=== PATIENT | male | born 1965 | race African-American/Black ===

== ENCOUNTER 2017-01-14 22:07 | Emergency (ER) | payer BC ==
[2017-01-14] MEDS ORDERED: HYDROmorphone 1 MG/ML Syringe IVPUSH ONE (23:28)
[2017-01-14] MEDS ORDERED: Ondansetron 4 MG/2 ML SDV IVPUSH ONE (23:28)
[2017-01-14] MEDS ORDERED: Sodium Chloride 0.9% 1,000 ML IV SCH (23:30)
--- NOTE | 2017-01-15 01:41 | EDM.PDOC ---
ED HPI GENERAL MEDICAL PROBLEM - General Chief Complaint: Abdominal Pain Stated Complaint: FEVER AND ABDOMINAL PAIN Time Seen by Provider: 01/14/17 22:36 Source of Information: Reports: Patient, RN Notes Reviewed History Limitations: Reports: No Limitations - History of Present Illness INITIAL COMMENTS - FREE TEXT/NARRATIVE: The patient states that he developed generalized abdominal pain around 17:00 today. He is unable to describe the character. The pain is constant, and he has not identified any modifiers. The patient also states that he has been coughing for the past few days, productive of whitish sputum. He has had chills tonight, but no documented fever , and he is afebrile here in the ED. The patient also reports nausea and 2 episodes of emesis tonight. No recent constipation, diarrhea, or urinary symptoms. The patient states that he was seen in the clinic today. He states that no tests were done, but he was prescribed a cough medicine and a stomach medicine, the names of which she does not know. No prior similar symptoms. The patient did not receive an influenza vaccine this season. The patient's last oral solid intake was around 15:00 today. His last oral fluid intake was around 17:00 today. The patient's PCP is in [facility]. Treatments LEASING PROPERTY MANAGER: Reports: Other (see below) Other Treatments LEASING PROPERTY MANAGER: none Abdomen Pain Score (Numeric/FACES): 10 - Related Data Allergies Allergy/AdvReac Type Severity Reaction Status Date / Time No Known Allergies Allergy Verified 01/14/17 22:18 Home Meds: Home Meds Lisinopril 20 mg PO DAILY 01/14/17 [History] Hydrocodone/Acetaminophen [Cisne 5-325 Tablet] 1 - 2 tab PO Q6H PRN #14 tablet 01/15/17 [Rx] Ondansetron [Zofran ODT] 1 tab PO Q8H PRN #10 tab.dis 01/15/17 [Rx] Tamsulosin HCl [Flomax] 1 tab PO QAM PRN #5 cap.er.24h 01/15/17 [Rx] Past Medical History Cardiovascular History: Reports: Hypertension Social & Family History - Tobacco Use Smoking Status *Q: Never Smoker - Caffeine Use Caffeine Use: Reports: Coffee, Tea - Alcohol Use Alcohol Use History: Yes Alcohol Use Frequency: Socially - Recreational Drug Use Recreational Drug Use: No - Living Situation & Occupation Living situation: Reports: , Alone Occupation: Employed ([employer]) ED ROS GENERAL - Review of Systems Review Of Systems: See Below Constitutional: Reports: No Symptoms HEENT: Reports: No Symptoms Respiratory: Reports: No Symptoms Cardiovascular: Reports: No Symptoms Endocrine: Reports: No Symptoms GI/Abdominal: Reports: No Symptoms : Reports: No Symptoms Musculoskeletal: Reports: No Symptoms Skin: Reports: No Symptoms Neurological: Reports: No Symptoms Psychiatric: Reports: No Symptoms Hematologic/Lymphatic: Reports: No Symptoms Immunologic: Reports: No Symptoms ED EXAM, GENERAL - Physical Exam Exam: See Below Exam Limited By: No Limitations General Appearance: Alert, WD/WN, Mild Distress (Patient is constantly moving about the bed) Eye Exam: Bilateral Eye: Normal Inspection Ears: Normal External Exam, Hearing Grossly Normal Ear Exam: Bilateral Ear: Tenderness Nose: Normal Inspection, No Blood Throat/Mouth: Normal Inspection, Normal Lips, Normal Voice, No Airway Compromise Head: Atraumatic, Normocephalic Neck: Normal Inspection, Full Range of Motion Respiratory/Chest: No Respiratory Distress, Lungs Clear, Normal Breath Sounds, No Accessory Muscle Use Cardiovascular: Normal Peripheral Pulses, Regular Rate, Rhythm, No Gallop, No JVD, No Murmur, No Rub Peripheral Pulses: 4+: Radial (L), Radial (R) GI/Abdominal: Normal Bowel Sounds, Soft, No Organomegaly, No Distention, No Abnormal Bruit, No Mass, Tender (Generalized, non-focal) (Male) Exam: Deferred Rectal (Males) Exam: Deferred Back Exam: Normal Inspection, Full Range of Motion. No: CVA Tenderness (L), CVA Tenderness (R) Extremities: Normal Inspection, Normal Range of Motion, No Pedal Edema, Normal Capillary Refill Neurological: Alert, Oriented, Normal Cognition, No Motor/Sensory Deficits Psychiatric: Normal Affect Skin Exam: Warm, Dry, Intact, Normal Color, No Rash Course - Vital Signs Last Recorded V/S: Last Vital Signs Temp 35.4 C 01/14/17 22:14 Pulse 84 01/14/17 22:14 Resp 24 H 01/14/17 22:14 BP 169/103 H 01/14/17 22:14 Pulse Ox 98 01/14/17 22:14 - Orders/Labs/Meds Orders: Active Orders 24 hr Category Date Time Status Strain Urine [RC] ASDIRECTED Care 01/15/17 02:39 Active Abdomen Pelvis w Cont [CT] Stat Exams 01/14/17 23:28 Taken Chest 2V [CR] Stat Exams 01/14/17 23:30 Taken CULTURE BLOOD [BC] Stat Lab 01/14/17 23:50 Received CULTURE BLOOD [BC] Stat Lab 01/14/17 23:58 Received Sodium Chloride 0.9% [Normal Saline] 1,000 ml Med 01/14/17 23:30 Active IV ASDIRECTED Blood Culture x2 Reflex Set [OM.PC] Stat Oth 01/14/17 23:30 Ordered Medication Orders Sodium Chloride (Normal Saline) 1,000 mls @ 150 mls/hr IV ASDIRECTED VALENTINA Last Admin: 01/14/17 23:51 Dose: 150 mls/hr Labs: Laboratory Tests 01/14/17 01/14/17 01/15/17 Range/Units 23:50 23:50 03:05 WBC 8.38 (4.23-9.07) K/mm3 RBC 4.67 (4.63-6.08) M/mm3 Hgb 13.4 L (13.7-17.5) gm/L Hct 40.4 (40.1-51.0) % MCV 86.5 (79.0-92.2) fl MCH 28.7 (25.7-32.2) pg MCHC 33.2 (32.2-35.5) g/dl RDW Std Deviation 41.1 (35.1-43.9) fL Plt Count 261 (163-337) K/mm3 MPV 9.0 L (9.4-12.3) fl Neutrophils % (Manual) 77 H (40-60) % Band Neutrophils % 0 (0-10) % Lymphocytes % (Manual) 10 L (20-40) % Atypical Lymphs % 2 % Monocytes % (Manual) 11 H (2-10) % Eosinophils % (Manual) 0 L (0.8-7.0) % Basophils % (Manual) 0 L (0.2-1.2) Platelet Estimate Adequate Plt Morphology Comment See note RBC Morph Comment Normal Sodium 139 (136-145) mEq/L Potassium 3.6 (3.5-5.1) mEq/L Chloride 104 (98-107) mEq/L Carbon Dioxide 25 (21-32) mEq/L Anion Gap 13.6 (5-15) BUN 15 (7-18) mg/dL Creatinine 1.4 H (0.7-1.3) mg/dL Est Cr Clr Drug Dosing 65.74 mL/min Estimated GFR (MDRD) 53 (>60) mL/min BUN/Creatinine Ratio 10.7 L (14-18) Glucose 153 H (74-106) mg/dL Calcium 9.4 (8.5-10.1) mg/dL Total Bilirubin 0.5 (0.2-1.0) mg/dL AST 26 (15-37) U/L ALT 26 (16-63) U/L Alkaline Phosphatase 68 (46-116) U/L Total Protein 7.8 (6.4-8.2) g/dl Albumin 3.9 (3.4-5.0) g/dl Globulin 3.9 gm/dL Albumin/Globulin Ratio 1.0 (1-2) Lipase 251 (73-393) U/L Urine Color Yellow (Yellow) Urine Appearance Clear (Clear) Urine pH 8.0 (5.0-8.0) Ur Specific [place] 1.020 (1.005-1.030) Urine Protein Negative (Negative) Urine Glucose (UA) Negative (Negative) Urine Ketones Trace H (Negative) Urine Occult Blood Negative (Negative) Urine Nitrite Negative (Negative) Urine Bilirubin Negative (Negative) Urine Urobilinogen 0.2 (0.2-1.0) Ur Leukocyte Esterase Negative (Negative) Urine RBC 0-5 (0-5) /hpf Urine WBC 0-5 (0-5) /hpf Ur Epithelial Cells Not seen (0-5) /hpf Amorphous Sediment Few H (NOT SEEN) /hpf Urine Bacteria Rare (FEW) /hpf Urine Mucus Few (FEW) /hpf Meds: Medications Generic Name Dose Route Start Last Admin Trade Name Freq PRN Reason Stop Dose Admin Sodium Chloride 1,000 mls @ 150 mls/hr 01/14/17 23:30 01/14/17 23:51 Normal Saline IV 150 mls/hr ASDIRECTED VALENTINA Administration Discontinued Medications Generic Name Dose Route Start Last Admin Trade Name Freq PRN Reason Stop Dose Admin Hydromorphone HCl 1 mg 01/14/17 23:28 01/14/17 23:55 Dilaudid IVPUSH 01/14/17 23:29 1 mg ONETIME ONE Administration Ondansetron HCl 4 mg 01/14/17 23:28 01/14/17 23:53 Zofran IVPUSH 01/14/17 23:29 4 mg ONETIME ONE Administration Tamsulosin HCl 0.4 mg 01/15/17 02:39 01/15/17 02:53 Flomax PO 01/15/17 02:40 0.4 mg ONETIME ONE Administration - Re-Assessments/Exams Free Text/Narrative Re-Assessment/Exam: 01/15/17 00:56 Two-view chest radiograph appears to be grossly normal. Cardiac silhouette is within normal limits. No pulmonary vascular congestion. No pleural effusions. No focal infiltrate. No pneumothorax. Formal read per the Radiologist pending. 01/15/17 02:37 CT of the abdomen and pelvis with IV contrast is read by virtual radiology as: 3 mm obstructing stone in the left ureterovesicular junction causing hydronephrosis as well as hydroureter of the left kidney Normal appendix right lower quadrant 01/15/17 04:04 Test results discussed with the patient and his brother, who is at the bedside. The patient will be discharged home with prescriptions for Cisne, Zofran, and Flomax. He will be given a urine strainer before he is discharged. He will be referred to Dr. Salazar, however, given the size and location of the stone, it is highly likely that the patient will pass this on his own and did not require Dr. Salazar's services. Departure - Departure Time of Disposition: 04:05 Disposition: Home, Self-Care 01 Condition: Good Clinical Impression: Ureterolithiasis - Discharge Information Prescriptions: Hydrocodone/Acetaminophen [Cisne 5-325 Tablet] 1 - 2 tab PO Q6H PRN #14 tablet PRN Reason: Pain (Severe 7-10) Referrals: PCP,None [Primary Care Provider] - Vincent Salazar MD [Physician] - Forms: ED Department Discharge Additional Instructions: You were seen in the emergency room for generalized abdominal pain, a cough, chills, nausea, and vomiting. Workup in the ER included blood work, 2 sets of blood cultures, an urinalysis, an influenza swab, a chest x-ray, and a CT scan of your abdomen and pelvis. Your workup found that you have a 3 mm stone in your left ureter, just at the bladder. It is HIGHLY LIKELY that you will past this stone on your own within a few days. It is important that you stay adequately hydrated. Strain all of your urine. If you capture the stone, take it to your doctor for analysis. Take [id number] ibuprofen, 2-3 tablets (400-600 mg) every 8 hours, with food, as needed for pain. Take one to 2 tablets Cisne up to every 6 hours, as needed for pain not relieved by ibuprofen. If you take Cisne, do not drive or operate heavy machinery for 10 hours afterwards. Cisne will likely cause constipation, so consider taking a stool softener Dissolve one tablet of the anti-nausea medicine Zofran on your tongue up to every 8 hours, as needed for nausea/vomiting. Take one tablet of the anti-spasm medicine Flomax every morning, starting tomorrow morning, 01/16/2017, as needed for pain. If your pain does not improve within one week, please follow-up with the Urologist Dr. Salazar. If any other problems, please do not hesitate to return to the ER. - My Orders Last 24 Hours: My Active Orders 01/14/17 23:28 Abdomen Pelvis w Cont [CT] Stat 01/14/17 23:30 Chest 2V [CR] Stat Sodium Chloride 0.9% [Normal Saline] 1,000 ml IV ASDIRECTED Blood Culture x2 Reflex Set [OM.PC] Stat 01/14/17 23:50 CULTURE BLOOD [BC] Stat 01/14/17 23:58 CULTURE BLOOD [BC] Stat 01/15/17 02:39 Strain Urine [RC] ASDIRECTED - Assessment/Plan Last 24 Hours: My Active Orders 01/14/17 23:28 Abdomen Pelvis w Cont [CT] Stat 01/14/17 23:30 Chest 2V [CR] Stat Sodium Chloride 0.9% [Normal Saline] 1,000 ml IV ASDIRECTED Blood Culture x2 Reflex Set [OM.PC] Stat 01/14/17 23:50 CULTURE BLOOD [BC] Stat 01/14/17 23:58 CULTURE BLOOD [BC] Stat 01/15/17 02:39 Strain Urine [RC] ASDIRECTED
[2017-01-15] MEDS ORDERED: Tamsulosin 0.4 MG Cap.ER PO ONE (02:39)
--- NOTE | 2017-01-15 07:40 | CR ---
Chest: Two views of the chest were obtained. Comparison: No prior chest x-ray. Heart size is mildly enlarged. Upper mediastinum is within normal limits. Lungs are clear. Bony structures are unremarkable. Impression: 1. Mild cardiomegaly. Please correlate if etiology is clinically known. 2. Nothing acute is otherwise seen on two-view chest x-ray. Diagnostic code #3
--- NOTE | 2017-01-15 08:46 | CT ---
CT abdomen and pelvis Technique: Multiple axial sections were obtained from above the dome of the diaphragm inferiorly through the pubic symphysis. Intravenous and oral contrast was utilized. Delayed images were obtained through the bladder. Findings: Asymmetric enhancement is seen comparing the kidneys with diminished enhancement seen on the left side. Inflammatory change identified around the left kidney as well as left ureteral dilatation. These findings are caused by a 3 mm obstructing stone within the distal left ureter at the UVJ. No other abnormal calcifications are seen along the course of the ureters. Delayed images show contrast within the distal right ureter with no contrast seen excreted into the distal left ureter. Small portion of the visualized lung bases are clear. Liver shows no focal parenchymal abnormality. Spleen appears within normal limits. Adrenal glands show no nodule. Gallbladder contains no calcified gallstones. Pancreas is within normal limits. Aorta shows no aneurysmal dilatation. No retroperitoneal adenopathy or mesenteric abnormalities are seen. Appendix is seen which is normal. No pelvic mass or adenopathy is seen. Bone window settings were reviewed which appear within normal limits for the patient's age. Impression: 1. Findings within the left kidney and ureter caused by a 3 mm obstructing stone located within the distal left ureter at the UVJ. 2. Other normal findings as described above. Diagnostic code #3 Agree with preliminary report issued by [facility] ([facility] preliminary report dictated on 01/15/17, 3:33 AM Central Time)
== END 2017-01-15 04:20 | disposition home or self-care (01) ==
LOC: JD.ED 22:07
DX: N13.2 Hydronephrosis with renal and ureteral calculous obstruction (principal); I10 Essential (primary) hypertension; Z79.899 Other long term (current) drug therapy
CPT/HCPCS: 36415; 71020; 74177; 80053; 81001; 83690; 85025; 87040; 87804; 96361; 96374; 99285; A9270; J1170; J2405; J7040; 99284

== ENCOUNTER 2017-01-16 02:29 | Emergency (ER) | payer BC ==
[2017-01-16] MEDS ORDERED: Ondansetron 4 MG/2 ML SDV IVPUSH ONE (03:44)
[2017-01-16] MEDS ORDERED: HYDROmorphone 1 MG/ML Syringe IVPUSH ONE (03:44)
--- NOTE | 2017-01-16 03:51 | EDM.PDOC ---
ED HPI GENERAL MEDICAL PROBLEM - General Chief Complaint: Abdominal Pain Stated Complaint: ABDOMINAL PAIN Time Seen by Provider: 01/16/17 02:58 Source of Information: Reports: Patient, Family (Brother), RN Notes Reviewed History Limitations: Reports: No Limitations - History of Present Illness INITIAL COMMENTS - FREE TEXT/NARRATIVE: The patient was seen by me in this ED last night, 01/14/2017 for generalized abdominal pain. Workup included a CBC, CMP, lipase, urinalysis, and a CT scan of the abdomen and pelvis with oral and IV contrast, which found a 3 mm stone at the left UVJ. The patient was discharged home with prescriptions for Dobson, Zofran, and Flomax. He was to strain all of his urine, and a referral to Dr. Salazar was given, although the patient was made aware that given the size and location of his stone, that he would most likely pass it on his own in a few days. The patient now returns due to waxing and waning pain in his left lower quadrant. He states that the Dobson has been inadequate to control his pain. He has had 2 episodes of emesis. No new fever. Left Abdomen Pain Score (Numeric/FACES): 10 - Related Data Allergies Allergy/AdvReac Type Severity Reaction Status Date / Time No Known Allergies Allergy Verified 01/16/17 02:41 Home Meds: Home Meds Lisinopril 20 mg PO DAILY 01/14/17 [History] Hydrocodone/Acetaminophen [Dobson 5-325] 1 - 2 tab PO Q6H PRN #14 tablet [Rx] Ondansetron [Zofran ODT] 1 tab PO Q8H PRN #10 tab.dis 01/15/17 [Rx] Tamsulosin HCl [Flomax] 1 tab PO QAM PRN #5 cap.er.24h 01/15/17 [Rx] oxyCODONE HCl/Acetaminophen [Percocet 7.5-325 mg Tablet] 1 - 2 tab PO Q6H PRN # 14 tablet 01/16/17 [Rx] Past Medical History Cardiovascular History: Reports: Hypertension Genitourinary History: Reports: Renal Calculus Social & Family History - Tobacco Use Smoking Status *Q: Never Smoker - Caffeine Use Caffeine Use: Reports: None - Alcohol Use Alcohol Use History: Yes Alcohol Use Frequency: Socially - Recreational Drug Use Recreational Drug Use: No - Living Situation & Occupation Living situation: Reports: , Alone 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 Denies: Fever HEENT: Reports: No Symptoms Respiratory: Reports: Cough, Sputum (whitish) Cardiovascular: Reports: No Symptoms Endocrine: Reports: No Symptoms GI/Abdominal: Reports: Abdominal Pain (as per the HPI), Nausea, Vomiting : Reports: No Symptoms Musculoskeletal: Reports: No Symptoms Skin: Reports: No Symptoms Neurological: Reports: No Symptoms Psychiatric: Reports: No Symptoms Hematologic/Lymphatic: Reports: No Symptoms Immunologic: Reports: No Symptoms ED EXAM, RENAL/ - Physical Exam Exam: See Below Exam Limited By: No Limitations General Appearance: Alert, WD/WN, No Apparent Distress Eye Exam: Bilateral Eye: Normal Inspection Ears: Normal External Exam, Hearing Grossly Normal Nose: Normal Inspection, No Blood Throat/Mouth: Normal Inspection, Normal Lips, Normal Voice, No Airway Compromise Head: Atraumatic, Normocephalic Neck: Normal Inspection, Full Range of Motion Respiratory/Chest: No Respiratory Distress, Lungs Clear, Normal Breath Sounds, No Accessory Muscle Use Cardiovascular: Normal Peripheral Pulses, Regular Rate, Rhythm, No Gallop, No JVD, No Murmur, No Rub GI/Abdominal: Normal Bowel Sounds, Soft, No Organomegaly, No Distention, No Abnormal Bruit, No Mass, Tender (Minimal, left lower quadrant. Nontender elsewhere.) (Male) Exam: Normal Inspection, Deferred Rectal (Males) Exam: Deferred Back Exam: Normal Inspection, Full Range of Motion. No: CVA Tenderness (L), CVA Tenderness (R) Extremities: Normal Inspection, Normal Range of Motion, No Pedal Edema, Normal Capillary Refill Neurological: Alert, Oriented, Normal Cognition, No Motor/Sensory Deficits Psychiatric: Normal Affect Skin Exam: Warm, Dry, Intact, Normal Color, No Rash Course - Vital Signs Last Recorded V/S: Last Vital Signs Temp 36.0 C 01/16/17 02:34 Pulse 94 01/16/17 02:34 Resp 18 01/16/17 02:34 BP 185/114 H 01/16/17 02:34 Pulse Ox 99 01/16/17 02:34 - Orders/Labs/Meds Meds: Medications Discontinued Medications Generic Name Dose Route Start Last Admin Trade Name Freq PRN Reason Stop Dose Admin Hydromorphone HCl 1 mg 01/16/17 03:44 01/16/17 03:59 Dilaudid IVPUSH 01/16/17 03:45 1 mg ONETIME ONE Administration Ondansetron HCl 4 mg 01/16/17 03:44 01/16/17 03:59 Zofran IVPUSH 01/16/17 03:45 4 mg ONETIME ONE Administration - Re-Assessments/Exams Free Text/Narrative Re-Assessment/Exam: 01/16/17 03:45 The patient will be given 1 mg IV Dilaudid and 4 mg IV Zofran, then discharged home with a prescription for Percocet. The patient was notified that he should not take both Dobson and Percocet at the same time. The patient was referred to Dr. Salazar last night. If the patient still has pain by 01/18/[address] Salazar's office to arrange for an appointment. Departure - Departure Time of Disposition: 03:46 Disposition: Home, Self-Care 01 Condition: Fair Clinical Impression: Ureterolithiasis - Discharge Information Prescriptions: oxyCODONE HCl/Acetaminophen [Percocet 7.5-325 mg Tablet] 1 - 2 tab PO Q6H PRN # 14 tablet PRN Reason: Pain (Severe 7-10) Referrals: PCP,None [Primary Care Provider] - Vincent Salazar MD [Physician] - Forms: ED Department Discharge Additional Instructions: You were seen in the emergency room for uncontrolled pain related to your left kidney stone. You were given Dilaudid and Zofran in the ER. We recommend that you continue to stay adequately hydrated. Continue to strain all of your urine. If you capture the stone, take it to your doctor for analysis. Continue to take [id number] ibuprofen, 2-3 tablets (400-600 mg) every 8 hours, with food, as needed for pain. You may take 1-2 tablets of EITHER the narcotic pain reliever Dobson OR Percocet up to every 6 hours, as needed for pain not relieved by ibuprofen. DO NOT take both Dobson and Percocet - just one or the other. If you take either Dobson or Percocet, do not drive or operate heavy machinery for 10 hours afterwards. Both Dobson and Percocet will likely cause constipation, so consider taking a stool softener. Dissolve one tablet of the anti-nausea medicine Zofran on your tongue up to every 8 hours, as needed for nausea/vomiting. Continue to take one tablet of the anti-spasm medicine Flomax every morning. If you still have significant pain by 01/18/2017, please contact the office of the Urologist Dr. Salazar to make an appointment. If any other problems, please do not hesitate to return to the ER.
== END 2017-01-16 04:15 | disposition home or self-care (01) ==
LOC: JD.ED 02:29
DX: N20.1 Calculus of ureter (principal); I10 Essential (primary) hypertension
CPT/HCPCS: 96374; 96375; 99284; J1170; J2405

== ENCOUNTER 2020-09-06 14:55 | Emergency (ER) | payer BC, OTHER ==
--- NOTE | 2020-09-06 16:34 | CT ---
Head CT Technique: Multiple axial sections through the brain were obtained. Intravenous contrast was not utilized. Reconstructed coronal and sagittal images were obtained. Comparison: No prior intracranial imaging is available. 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 Ventricles along with basal cisterns and sulci over the convexities are within normal limits. No other abnormal parenchymal densities are seen. No evidence of intracranial hemorrhage is seen. No midline shift or mass-effect is appreciated. Bone window settings were reviewed which show no acute calvarial abnormality. Visualized mastoid sinuses are clear. Minimal mucosal thickening is seen within the ethmoid sinuses which are felt to be incidental. Impression: 1. 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 2. Minimal sinus finding which is believed to be incidental. 3. Nothing acute is otherwise seen on noncontrast head CT study. Diagnostic code #2
--- NOTE | 2020-09-06 17:23 | EDM.PDOC ---
ED HPI GENERAL MEDICAL PROBLEM - General Chief Complaint: Neurological Problem Stated Complaint: DIZZY Time Seen by Provider: 09/06/20 15:34 Source of Information: Reports: Patient History Limitations: Reports: No Limitations - History of Present Illness INITIAL COMMENTS - FREE TEXT/NARRATIVE: The patient presents for dizziness. 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 It is better now but not gone. He had a stroke in February and he just came back to work. He has no headache, ear pain, hearing loss, headache, fever, chills, cough, chest pain, shortness of breath, abdominal pain, nausea or vomiting. He has no numbness or weakness. Onset: Sudden Duration: Minutes: Severity: Moderate Improves with: Reports: None Worsens with: Reports: None Associated Symptoms: Reports: No Other Symptoms - Related Data Allergies Allergy/AdvReac Type Severity Reaction Status Date / Time No Known Allergies Allergy Verified 02/11/20 07:35 [employer] Home Meds: Home Meds NIFEdipine [Nifedipine ER] 60 mg PO DAILY 02/11/20 [History] atorvaSTATin [Lipitor] 80 mg PO BEDTIME tablet 02/11/20 [Rx] Aspirin [Halfprin] 81 mg PO DAILY 09/06/20 [History] Clopidogrel [Plavix] 75 mg PO DAILY 09/06/20 [History] Meclizine [Antivert] 25 mg PO Q6H PRN #20 tab 09/06/20 [Rx] Past Medical History Cardiovascular History: Reports: Hypertension Respiratory History: Reports: None Gastrointestinal History: Reports: None Genitourinary History: Reports: Renal Calculus Musculoskeletal History: Reports: None Neurological History: Reports: CVA, TIA Hematologic History: Reports: None Oncologic (Cancer) History: Reports: None - Past Surgical History Head Surgeries/Procedures: Reports: None Cardiovascular Surgical History: Reports: None Social & Family History - Tobacco Use Tobacco Use Status *Q: Never Tobacco User Second Hand Smoke Exposure: No - Caffeine Use Caffeine Use: Reports: Coffee - Recreational Drug Use Recreational Drug Use: No - Living Situation & Occupation Living situation: Reports: , Alone Occupation: Employed ([employer]) ED ROS GENERAL - Review of Systems Review Of Systems: See Below Constitutional: Reports: No Symptoms HEENT: Reports: No Symptoms Respiratory: Reports: No Symptoms Cardiovascular: Reports: No Symptoms Endocrine: Reports: No Symptoms GI/Abdominal: Reports: No Symptoms : Reports: No Symptoms Musculoskeletal: Reports: No Symptoms ED EXAM, NEURO - Physical Exam Exam: See Below Exam Limited By: No Limitations General Appearance: Alert, No Apparent Distress Eye Exam: Right Eye: Nystagmus Ears: Normal External Exam Nose: Normal Inspection Head Exam: Atraumatic, Normocephalic Neck: Normal Inspection Respiratory/Chest: No Respiratory Distress, Lungs Clear, Normal Breath Sounds Cardiovascular: Regular Rate, Rhythm, No Edema, No Murmur GI/Abdominal: Soft, Non-Tender, No Organomegaly, No Mass Neurological: Alert, No Motor/Sensory Deficits, Oriented x 3 #1 Interpretation EKG Date: 09/06/20 Time: 16:28 Rhythm: NSR Rate (Beats/Min): 74 [place]: Normal P-Wave: Present QRS: Normal ST-T: Normal QT: Normal Course - Vital Signs Last Recorded V/S: Last Vital Signs Temp 97 F 09/06/20 15:07 Pulse 85 09/06/20 15:07 Resp 16 09/06/20 15:07 BP 131/89 09/06/20 15:07 Pulse Ox 95 09/06/20 15:07 - Orders/Labs/Meds Orders: Active Orders 24 hr Category Date Time Status Cardiac Monitoring [RC] . DIRECTED Care 09/06/20 16:02 Active EKG Documentation Completion [RC] STAT Care 09/06/20 16:02 Active Labs: Laboratory Tests 09/06/20 09/06/20 Range/Units 16:24 16:24 WBC 7.67 (4.23-9.07) K/mm3 RBC 4.88 (4.63-6.08) M/mm3 Hgb 14.3 (13.7-17.5) gm/dl Hct 43.6 (40.1-51.0) % MCV 89.3 (79.0-92.2) fl MCH 29.3 (25.7-32.2) pg MCHC 32.8 (32.2-35.5) g/dl RDW Std Deviation 44.5 H (35.1-43.9) fL Plt Count 276 (163-337) K/mm3 MPV 8.5 L (9.4-12.3) fl Neut % (Auto) 66.4 (34.0-67.9) % Lymph % (Auto) 25.6 (21.8-53.1) % Reeves % (Auto) 7.7 (5.3-12.2) % Eos % (Auto) 0.1 L (0.8-7.0) Baso % (Auto) 0.1 (0.1-1.2) % Neut # (Auto) 5.09 (1.78-5.38) K/mm3 Lymph # (Auto) 1.96 (1.32-3.57) K/mm3 Reeves # (Auto) 0.59 (0.30-0.82) K/mm3 Eos # (Auto) 0.01 L (0.04-0.54) K/mm3 Baso # (Auto) 0.01 (0.01-0.08) K/mm3 Sodium 146 H (136-145) mEq/L Potassium 3.9 (3.5-5.1) mEq/L Chloride 108 H (98-107) mEq/L Carbon Dioxide 30 (21-32) mEq/L Anion Gap 11.9 (5-15) BUN 13 (7-18) mg/dL Creatinine 0.8 (0.7-1.3) mg/dL Est Cr Clr Drug Dosing 111.12 mL/min Estimated GFR (MDRD) > 60 (>60) mL/min BUN/Creatinine Ratio 16.3 (14-18) Glucose 112 H (70-99) mg/dL Calcium 8.8 (8.5-10.1) mg/dL Total Bilirubin 0.3 (0.2-1.0) mg/dL AST 19 (15-37) U/L ALT 58 (16-63) U/L Alkaline Phosphatase 75 (46-116) U/L Troponin I 0.027 (0.00-0.056) ng/mL Total Protein 7.2 (6.4-8.2) g/dl Albumin 3.6 (3.4-5.0) g/dl Globulin 3.6 gm/dL Albumin/Globulin Ratio 1.0 (1-2) Meds: Medications Discontinued Medications Generic Name Dose Route Start Last Admin Trade Name Freq PRN Reason Stop Dose Admin Meclizine HCl 25 mg 09/06/20 16:24 09/06/20 16:46 Meclizine 25 Mg Tab.Chew PO 09/06/20 16:25 25 mg ONETIME ONE Administration - Re-Assessments/Exams Free Text/Narrative Re-Assessment/Exam: 09/06/20 17:21 I ordered an EKG, CT of his head, labs and antivert 25mg by mouth. His EKG shows a NSR with no acute changes. The CT of his head shows findings compatible with old infarcts. Minimal sinus finding which is believed to be incidental. Nothing acute is otherwise seen on noncontrast head CT study. His CBC looks good. His sodium is elevated at 146. His troponin is negative. I will discharge him home. He has vertigo. Departure - Departure Time of Disposition: 17:25 Disposition: Home, Self-Care 01 Condition: Good Clinical Impression: Vertigo - Discharge Information *PRESCRIPTION DRUG MONITORING PROGRAM REVIEWED*: Not Applicable *COPY OF PRESCRIPTION DRUG MONITORING REPORT IN PATIENT ROSEANN: Not Applicable Prescriptions: Meclizine [Antivert] 25 mg PO Q6H PRN #20 tab PRN Reason: Dizziness Referrals: PCP,Not In Area [Primary Care Provider] - Additional Instructions: Drink plenty of fluids. Take the antivert as needed for dizziness every 6 hours. Follow up with your provider within a week. Please return if you are worse. Sepsis Event Note (ED) - Evaluation Sepsis Screening Result: No Definite Risk - Focused Exam Vital Signs: Vital Signs Temp Pulse Resp BP Pulse Ox 09/06/20 15:07 97 F 85 16 131/89 95 - My Orders Last 24 Hours: My Active Orders 09/06/20 16:02 Cardiac Monitoring [RC] . DIRECTED EKG Documentation Completion [RC] STAT - Assessment/Plan Last 24 Hours: My Active Orders 09/06/20 16:02 Cardiac Monitoring [RC] . DIRECTED EKG Documentation Completion [RC] STAT
== END 2020-09-06 17:40 | disposition home or self-care (01) ==
LOC: JD.ED 14:55
DX: R42 Dizziness and giddiness (principal); I10 Essential (primary) hypertension; Z86.73 Personal history of transient ischemic attack (TIA), and cerebral infarction without residual deficits; Z79.82 Long term (current) use of aspirin; Z79.899 Other long term (current) drug therapy; Z79.02 Long term (current) use of antithrombotics/antiplatelets
CPT/HCPCS: 36415; 70450; 80053; 84484; 85025; 93005; 99284; A9270; 93010; 99283